=== PATIENT | female | born 1990 | race Two or more races ===

== ENCOUNTER 2020-03-09 12:32 | Inpatient (IN) | payer MEDICAID ==
[~2020-03-09] VITALS: Ht 154.9 cm; Wt 71.7 kg
[2020-03-09] MEDS ORDERED: OLAN10TA3 PO (17:51)
[2020-03-09] MEDS ORDERED: CEPH-581 PO (17:51)
[2020-03-09] MEDS ORDERED: HALOPERIDOL 5 MG TABLET PO PRN (18:45)
[2020-03-09] MEDS ORDERED: ZOLPIDEM TARTRATE 10 MG TABLET PO PRN (18:45)
[2020-03-09 19:13] VITALS: BP 120/79
[2020-03-09] MEDS: CEPHALEXIN MONOHYDRATE 250 MG CAPSULE PO SCH (21:00)
[2020-03-10 07:14] VITALS: BP 125/72
[2020-03-10 08:11] LABS: BASOPHILS % (AUTO) 0.7 % (0.0-2.0); EOSINOPHILS % (AUTO) 2.6 % (1.0-6.0); HEMATOCRIT 36.7 % (36-46); HEMOGLOBIN 12.1 g/dL (12.0-16.0); LYMPHOCYTES # (AUTO) 1.6 K/uL (1.0-4.8); LYMPHOCYTES % (AUTO) 37.1 % (22.0-44.0); MEAN CORPUSCULAR HGB CONC 32.9 G/dL (31.0-37.0); MEAN CORPUSCULAR VOLUME 85 fL (80-100); MONOCYTES # (AUTO) 0.4 K/uL (0.1-1.0); MONOCYTES % (AUTO) 10.2 % (2.0-9.0); NEUTROPHILS # (AUTO) 2.1 K/uL (1.8-7.7); NEUTROPHILS % (AUTO) 49.4 % (40.0-70.0); PLATELET COUNT (AUTO) 345 K/uL (150-450); RED BLOOD CELL COUNT(AUTO) 4.31 MIL/uL (4.00-5.20); RED CELL DISTRIBUTION WIDTH 14.1 % (11.5-14.5)
[2020-03-10 08:24] VITALS: BP 109/62
[2020-03-10] MEDS ORDERED: LORazepam 2 MG/ML VIAL ONE (08:40)
[2020-03-10] MEDS ORDERED: HALOPERIDOL LACTATE 5 MG/ML VIAL ONE (08:40)
[2020-03-10] MEDS ORDERED: DiphenhydrAMINE HCL 50 MG/ML VIAL ONE (08:40)
[2020-03-10] MEDS ORDERED: LORazepam 2 MG/ML VIAL IM ONE (08:50)
[2020-03-10] MEDS ORDERED: HALOPERIDOL LACTATE 5 MG/ML VIAL IM ONE (08:50)
[2020-03-10] MEDS ORDERED: DiphenhydrAMINE HCL 50 MG/ML VIAL IM ONE (08:50)
[2020-03-10 08:55] LABS: ALANINE AMINOTRANSFERASE 203 U/L (12-78); ALKALINE PHOSPHATASE 71 U/L (46-116); ANION GAP 6 mmol/L (8-16); ASPARTATE AMINOTRANSFERASE 115 U/L (15-37); BILIRUBIN,TOTAL 0.1 mg/dL (0.1-1.0); CALCIUM, TOTAL 8.6 mg/dL (8.8-10.5); CARBON DIOXIDE 27 mmol/L (22-29); CHLORIDE 102 mmol/L (98-107); CHOL/HDL RATIO 3.6 (3.9-5.7); CHOLESTEROL 169 mg/dL (131-200); CREATININE 0.53 mg/dL (0.60-1.30); GLOMERULAR FILTR. RATE CALC > 60 mL/min (>60); GLUCOSE,RANDOM 94 mg/dL (70-110); HDL CHOLESTEROL 47 mg/dL (40-60); LDL CHOL (CALC.) 78 mg/dL (0-130); POTASSIUM 4.6 mmol/L (3.5-5.1); SODIUM SERUM 135 mmol/L (136-145); THYROID STIMULATING HORMONE 0.59 uIU/mL (0.36-3.74); TOTAL PROTEIN, SERUM 6.5 g/dL (6.4-8.2); TRIGLYCERIDES 222 mg/dL (15-150); UREA NITROGEN, BLOOD 13 mg/dL (7-18)
[2020-03-10] MEDS ORDERED: ACETAMINOPHEN 325 MG TABLET PO PRN (09:00)
[2020-03-10] MEDS ORDERED: CloNIDine HCL 0.1 MG TABLET PO PRN (09:00)
[2020-03-10] MEDS ORDERED: ALBUTEROL SULFATE HFA 90 MCG/PUFF 8 GM INHALER IH PRN (09:00)
[2020-03-10] MEDS ORDERED: DOCUSATE SODIUM 100 MG CAPSULE PO PRN (09:00)
[2020-03-10] MEDS: CEPHALEXIN MONOHYDRATE 250 MG CAPSULE PO SCH ×4 (09:00→20:31)
[2020-03-10] MEDS ORDERED: ONDANSETRON HCL 4 MG TABLET PO PRN (09:00)
[2020-03-10] MEDS ORDERED: MAGNESIUM HYDROXIDE SUSPENSION 30 ML UDCUP PO PRN (09:00)
[2020-03-10] MEDS ORDERED: PETROLATUM,WHITE 28 GM JELLY TP PRN (09:00)
[2020-03-10] MEDS ORDERED: IBUPROFEN 400 MG TABLET PO PRN (09:00)
[2020-03-10] MEDS ORDERED: LOPERAMIDE HCL 2 MG CAPSULE PO PRN (09:00)
[2020-03-10] MEDS: NICOTINE 7 MG/24 HOUR PATCH TD SCH (09:00)
[2020-03-10] MEDS ORDERED: NICOTINE 14 MG/24 HOUR PATCH TD PRN (09:00)
[2020-03-10] MEDS ORDERED: MAG HYDROX/AL HYDROX/SIMETH ES 30 ML SUSPENSION UDCUP PO PRN (09:00)
[2020-03-10] MEDS ORDERED: GuaiFENesin/D-METHORPHAN [SUGAR-FREE] 200-20MG/10 ML SYRUP UDCUP PO PRN (09:00)
[2020-03-10 09:10] LABS: HEMOGLOBIN A1C 5.6 % (3.8-5.6)
[2020-03-10] MEDS: OLANZapine 10 MG TABLET PO SCH (16:55)
[2020-03-10] MEDS: GABAPENTIN 300 MG CAPSULE PO SCH (16:55)
[2020-03-11 06:44] VITALS: BP 132/73
[2020-03-11] MEDS: OLANZapine 10 MG TABLET PO SCH ×2 (09:31→16:59)
[2020-03-11] MEDS: CEPHALEXIN MONOHYDRATE 250 MG CAPSULE PO SCH ×4 (09:31→20:09)
[2020-03-11] MEDS: GABAPENTIN 300 MG CAPSULE PO SCH ×2 (09:31→16:59)
[2020-03-11] MEDS: NICOTINE 7 MG/24 HOUR PATCH TD SCH (09:31)
[2020-03-11] MEDS: LORazepam 2 MG TABLET PO PRN (09:36)
[2020-03-11 16:05] VITALS: BP 116/69
[2020-03-12 02:34] VITALS: BP 114/77
[2020-03-12 08:08] VITALS: BP 103/80
[2020-03-12] MEDS: OLANZapine 10 MG TABLET PO SCH ×2 (08:31→16:30)
[2020-03-12] MEDS: CEPHALEXIN MONOHYDRATE 250 MG CAPSULE PO SCH ×4 (08:31→20:17)
[2020-03-12] MEDS: GABAPENTIN 300 MG CAPSULE PO SCH ×2 (08:31→16:30)
[2020-03-12] MEDS: NICOTINE 7 MG/24 HOUR PATCH TD SCH (08:35)
[2020-03-12] MEDS: LORazepam 2 MG TABLET PO PRN (13:53)
[2020-03-12 16:04] VITALS: BP 113/70
[2020-03-13 04:42] VITALS: BP 115/75
[2020-03-13] MEDS: CEPHALEXIN MONOHYDRATE 250 MG CAPSULE PO SCH ×4 (08:29→21:00)
[2020-03-13] MEDS: NICOTINE 7 MG/24 HOUR PATCH TD SCH (08:29)
[2020-03-13] MEDS: OLANZapine 10 MG TABLET PO SCH ×2 (08:29→16:19)
[2020-03-13] MEDS: GABAPENTIN 300 MG CAPSULE PO SCH ×2 (08:29→16:19)
[2020-03-13 08:45] VITALS: BP 115/66
[2020-03-14] MEDS: NICOTINE 7 MG/24 HOUR PATCH TD SCH (08:07)
[2020-03-14] MEDS: CEPHALEXIN MONOHYDRATE 250 MG CAPSULE PO SCH ×4 (08:07→20:00)
[2020-03-14] MEDS: OLANZapine 10 MG TABLET PO SCH ×2 (08:07→16:15)
[2020-03-14] MEDS: GABAPENTIN 300 MG CAPSULE PO SCH ×2 (08:07→16:15)
[2020-03-14 08:21] VITALS: BP 116/68
[2020-03-15 04:02] VITALS: BP 125/70
[2020-03-15] MEDS: OMEGA-3/DHA/EPA/FISH OIL 1,000 MG CAPSULE PO SCH (08:40)
[2020-03-15] MEDS: NICOTINE 7 MG/24 HOUR PATCH TD SCH (08:40)
[2020-03-15] MEDS: OLANZapine 10 MG TABLET PO SCH ×2 (08:40→16:22)
[2020-03-15] MEDS: GABAPENTIN 300 MG CAPSULE PO SCH ×2 (08:40→16:22)
[2020-03-15] MEDS: LORazepam 2 MG TABLET PO PRN (08:43)
[2020-03-15 08:55] VITALS: BP 113/65
[2020-03-15 16:09] VITALS: BP 115/65
[2020-03-16] MEDS: OLANZapine 10 MG TABLET PO SCH ×2 (08:10→16:04)
[2020-03-16] MEDS: GABAPENTIN 300 MG CAPSULE PO SCH ×2 (08:10→16:04)
[2020-03-16] MEDS: OMEGA-3/DHA/EPA/FISH OIL 1,000 MG CAPSULE PO SCH (08:10)
[2020-03-16] MEDS: LORazepam 2 MG TABLET PO PRN (08:11)
[2020-03-16] MEDS: NICOTINE 7 MG/24 HOUR PATCH TD SCH (08:11)
[2020-03-16 08:25] VITALS: BP 108/79
[2020-03-16 16:24] VITALS: BP 107/66
[2020-03-17 02:34] VITALS: BP 101/68
[2020-03-17] MEDS: OMEGA-3/DHA/EPA/FISH OIL 1,000 MG CAPSULE PO SCH (08:20)
[2020-03-17] MEDS: GABAPENTIN 300 MG CAPSULE PO SCH ×2 (08:20→16:44)
[2020-03-17] MEDS: NICOTINE 7 MG/24 HOUR PATCH TD SCH (08:20)
[2020-03-17] MEDS: OLANZapine 10 MG TABLET PO SCH (08:20)
[2020-03-17 08:23] VITALS: BP 110/80
[2020-03-17] MEDS: LORazepam 2 MG TABLET PO PRN (08:51)
[2020-03-17 16:18] VITALS: BP 101/72
[2020-03-17] MEDS: OLANZapine 7.5 MG TABLET PO SCH (16:44)
[2020-03-18 06:10] VITALS: BP 100/61
[2020-03-18] MEDS: NICOTINE 7 MG/24 HOUR PATCH TD SCH (08:20)
[2020-03-18] MEDS: LORazepam 2 MG TABLET PO PRN (08:20)
[2020-03-18] MEDS: GABAPENTIN 300 MG CAPSULE PO SCH ×2 (08:20→16:23)
[2020-03-18] MEDS: OMEGA-3/DHA/EPA/FISH OIL 1,000 MG CAPSULE PO SCH (08:20)
[2020-03-18] MEDS: OLANZapine 7.5 MG TABLET PO SCH ×2 (08:20→16:23)
[2020-03-18 09:44] VITALS: BP 102/68
[2020-03-19 00:04] VITALS: BP 104/63
[2020-03-19 08:16] VITALS: BP 103/64
[2020-03-19] MEDS: OLANZapine 7.5 MG TABLET PO SCH ×2 (08:26→16:04)
[2020-03-19] MEDS: GABAPENTIN 300 MG CAPSULE PO SCH ×2 (08:26→16:04)
[2020-03-19] MEDS: OMEGA-3/DHA/EPA/FISH OIL 1,000 MG CAPSULE PO SCH (08:26)
[2020-03-19] MEDS: NICOTINE 7 MG/24 HOUR PATCH TD SCH (08:27)
[2020-03-19] MEDS: LORazepam 2 MG TABLET PO PRN (16:04)
[2020-03-19 16:23] VITALS: BP 113/64
[2020-03-20 01:35] VITALS: BP 114/63
[2020-03-20] MEDS: OMEGA-3/DHA/EPA/FISH OIL 1,000 MG CAPSULE PO SCH (10:19)
[2020-03-20] MEDS: OLANZapine 7.5 MG TABLET PO SCH ×2 (10:20→16:24)
[2020-03-20] MEDS: LORazepam 2 MG TABLET PO PRN (10:20)
[2020-03-20] MEDS: GABAPENTIN 300 MG CAPSULE PO SCH ×2 (10:20→16:24)
[2020-03-20] MEDS: NICOTINE 7 MG/24 HOUR PATCH TD SCH (10:35)
[2020-03-20 16:09] VITALS: BP 107/68
[2020-03-21 03:59] VITALS: BP 102/60
[2020-03-21] MEDS: GABAPENTIN 300 MG CAPSULE PO SCH ×2 (08:14→16:14)
[2020-03-21] MEDS: OMEGA-3/DHA/EPA/FISH OIL 1,000 MG CAPSULE PO SCH (08:14)
[2020-03-21] MEDS: NICOTINE 7 MG/24 HOUR PATCH TD SCH (08:14)
[2020-03-21] MEDS: OLANZapine 7.5 MG TABLET PO SCH ×2 (08:15→16:14)
[2020-03-21 09:25] VITALS: BP 110/70
[2020-03-21] MEDS: LORazepam 2 MG TABLET PO PRN ×2 (12:29→16:30)
[2020-03-21 16:07] VITALS: BP 119/60
[2020-03-22 07:58] LABS: BASOPHILS % (AUTO) 0.7 % (0.0-2.0); EOSINOPHILS % (AUTO) 2.1 % (1.0-6.0); HEMATOCRIT 36.3 % (36-46); HEMOGLOBIN 11.9 g/dL (12.0-16.0); LYMPHOCYTES # (AUTO) 2.1 K/uL (1.0-4.8); LYMPHOCYTES % (AUTO) 38.6 % (22.0-44.0); MEAN CORPUSCULAR HEMOGLOBIN 27.8 pg (26.0-34.0); MEAN CORPUSCULAR HGB CONC 32.8 G/dL (31.0-37.0); MEAN CORPUSCULAR VOLUME 85 fL (80-100); MONOCYTES # (AUTO) 0.5 K/uL (0.1-1.0); NEUTROPHILS # (AUTO) 2.6 K/uL (1.8-7.7); NEUTROPHILS % (AUTO) 48.6 % (40.0-70.0); PLATELET COUNT (AUTO) 347 K/uL (150-450); RED BLOOD CELL COUNT(AUTO) 4.27 MIL/uL (4.00-5.20); RED CELL DISTRIBUTION WIDTH 14.5 % (11.5-14.5)
[2020-03-22 08:07] VITALS: BP 112/66
[2020-03-22] MEDS: OMEGA-3/DHA/EPA/FISH OIL 1,000 MG CAPSULE PO SCH (08:33)
[2020-03-22] MEDS: OLANZapine 7.5 MG TABLET PO SCH (08:33)
[2020-03-22] MEDS: GABAPENTIN 300 MG CAPSULE PO SCH (08:33)
[2020-03-22] MEDS: NICOTINE 7 MG/24 HOUR PATCH TD SCH (08:34)
[2020-03-22] MEDS ORDERED: OLAN7.5T2 PO (11:43)
[2020-03-22] MEDS ORDERED: GABA-1181 PO (11:43)
== END 2020-03-22 14:45 | disposition home or self-care (01) | DRG 885 ==
LOC: B2S 18:38
PROVIDERS: ADMIT Psychiatry & Neurology Psychiatry; ATTEND Psychiatry & Neurology Psychiatry
DX: F20.0 Paranoid schizophrenia (principal); E87.1 Hypo-osmolality and hyponatremia; F17.210 Nicotine dependence, cigarettes, uncomplicated; D72.819 Decreased white blood cell count, unspecified; E78.5 Hyperlipidemia, unspecified; F10.10 Alcohol abuse, uncomplicated; Z59.0 Homelessness; R74.0 Nonspecific elevation of levels of transaminase and lactic acid dehydrogenase [LDH]; F15.10 Other stimulant abuse, uncomplicated; F12.10 Cannabis abuse, uncomplicated
CPT/HCPCS: 83036; 84439; 84443; 87081; J1200; J1630; J2060